=== PATIENT | female | born 1985 | race Caucasian/White ===

== ENCOUNTER 2018-12-19 10:21 | Emergency (ER) | payer OTHER ==
[2018-12-19 10:51] VITALS: BMI 47.8
[2018-12-19 10:56] VITALS: BP 108/63; PULSE 93; RESP 18; TEMP 98.4; O2SAT 96
--- NOTE | 2018-12-19 12:04 | ED PDOC ---
Arrival/HPI - General Chief Complaint: Abnormal Skin Integrity Time Seen by Provider: 12/19/18 11:32 Historian: Patient - History of Present Illness Narrative History of Present Illness (Text): 12/19/18 12:01 33-year-old female presents today with a 2 week history of pain to the lumbosacral area. Patient has been seen by the primary care physician and was given antibiotics she has been taking twice a day for the past few days. Patient states over the past few days she's noticed that there is drainage coming from the sacral region. Patient denies fevers or chills. No abdominal pain. No nausea vomiting diarrhea or constipation. Patient states that she was supposed to see a surgeon today but when she went to the office they told him that they did not take her insurance and she came to the emergency room for evaluation. Patient states the pain is worse with sitting and applying pressure to the area. Patient states she's been doing warm compresses at home. Past Medical History - Provider Review Nursing Documentation Reviewed: Yes - Travel History Have you recently traveled outside [place] w/in the past 3 mons?: No - Reproductive Currently : No Family/Social History - Physician Review Nursing Documentation Reviewed: Yes Family/Social History: Unknown Family HX Smoking Status: Unknown If Ever Smoked Hx Alcohol Use: No Hx Substance Use: No Allergies/Home Meds Allergies/Adverse Reactions: Allergies shellfish derived Allergy (Verified 12/19/18 10:50) RASH Review of Systems - Review of Systems Constitutional: absent: Fatigue, Fevers Respiratory: absent: SOB, Cough Cardiovascular: absent: Chest Pain, Palpitations Gastrointestinal: absent: Abdominal Pain, Nausea, Vomiting Musculoskeletal: Back Pain (at abscess site). absent: Arthralgias, Neck Pain Skin: Abscess Neurological: absent: Headache, Dizziness Psychiatric: absent: Anxiety, Depression Physical Exam Vital Signs Reviewed: Yes Vital Signs Temp Pulse Resp BP Pulse Ox 12/19/18 10:56 98.4 F 93 H 18 108/63 96 Temperature: Afebrile Blood Pressure: Normal Pulse: Regular Respiratory Rate: Normal Appearance: Positive for: Well-Appearing, Non-Toxic, Comfortable Pain Distress: None Mental Status: Positive for: Alert and Oriented X 3 - Systems Exam Head: Present: Atraumatic Respiratory/Chest: Present: Clear to Auscultation Cardiovascular: Present: Regular Rate and Rhythm Back: Present: Other (there is a large tender area of erythema noted at the proximal aspect of the buttock crease with induration extending laterally.no erythema. + moderate drainage noted. ) Neurological: Present: GCS=15, Speech Normal Skin: Present: Warm, Dry, Normal Color Psychiatric: Present: Alert, Oriented x 3 Medical Decision Making ED Course and Treatment: 12/19/18 12:09 pt non toxic well appearing; no distress. stable vitals. Patient was seen and evaluated by the surgical residents at bedside. They have advised blood work and an pelvis CAT scan to further evaluate the abscess. CBC: wbc;12.0 CMP: glucose; 190 percocet given for pain. CAT scan:FINDINGS: BLADDER: Unremarkable. No mass. REPRODUCTIVE ORGANS: There is cystic formation seen to right and posterior uterus measures 4.3 centimeter likely represent right adnexal cyst. VISUALIZED BOWEL: Unremarkable. PERITONEUM: Unremarkable, as visualized. No free fluid. No free air. LYMPH NODES: Unremarkable. No enlarged lymph nodes. BONES: No fracture or focal lesion. VASCULATURE: No aortic atherosclerotic calcification or mural plaque present. OTHER FINDINGS: There is subcutaneous fluid collection surrounding with inflammatory changes at the midline lower back at the level of lower sacrum and upper coccyx spine measures 3.9 centimeter in the longitudinal diameter 3.5 centimeter in the transverse diameter and 2.5 centimeter in the AP diameter may represent abscess formation. IMPRESSION: Subcutaneous fluid collection surrounding with inflammatory changes seen at the midline lower back at the level of the sacral coccyx spine measures 3.9 x 3.5 x 2.5 centimeter may represent abscess formation. Suspicious for right adnexal cyst measures approximately 4 centimeter. If indicated further assessment by ultrasound of the pelvis may be obtained. 12/19/18 15:36 awaiting surgery for further management. pt is requesting albuterol treatment. lungs are clear CTA bilaterally. 12/19/18 16:47 Surgical residents reviewed the CT and saw the patient again at bedside and discussed the plan for which no incision and drainage is indicated at this time since the abscess is currently draining. Case was discussed with Dr. Moore. Patient eloped from the ER without medications. pt states that she is frustrated that she waited in the ER with no treatment of her condition. I was able to locate the patient around the corner from the emergency room. I spoke with the patient and apologized for the long wait in the emergency room. I discussed in depth with her that the surgical residents who spoke with the attending discussed the case and found that there was no indication for incision and drainage at this time because the wound is currently draining and there is a very small collection found on CAT scan. I advised her that they suggested continuing the warm compresses and warm soaks. I've advised the patient that she should take antibiotics and continue the warm compresses and she can follow-up with the surgeon. I've advised immediate return if symptoms worsen persist or if new concerning symptoms develop. I was able to convince the patient to return into the emergency room to at least take the first dose of both Bactrim and Keflex and Percocet for the pain and take rX for the same. PT states she took tramadol at home without improvement in the pain and does not want tramadol. Patient states the Percocet did help significantly with the pain in the emergency room. pt was advised to return immediately if symptoms worsen,persist or if new symptoms develop. advised immediate return if pain worsens, high fevers, or if any other concerning symptoms develop. all aspects of this case were discussed the attending of record. Impression: Abscess, buttock Bactrim 1 tablet twice daily 7 days Keflex one capsule 4 times daily 7 days Increase fluids Motrin every 6 hours as needed for pain. percocet one tablet every 8 hours as needed for moderate to severe pain: May cause drowsiness Follow-up with the surgeon within the next 2 days Continue warm compresses and warm soaks frequently Return immediately if symptoms worsen persist or if new concerning symptoms develop Disposition/Present on Arrival - Present on Arrival Any Indicators Present on Arrival: No History of DVT/PE: No History of Uncontrolled Diabetes: No Urinary Catheter: No History of Decub. Ulcer: No History Surgical Site Infection Following: None - Disposition Have Diagnosis and Disposition been Completed?: Yes Diagnosis: Pilonidal abscess Disposition: HOME/ ROUTINE Disposition Time: 13:20 Patient Plan: Discharge Condition: GOOD Discharge Instructions (ExitCare): Abscess Incision and Drainage (DC) Additional Instructions: Bactrim 1 tablet twice daily 7 days Keflex one capsule 4 times daily 7 days Increase fluids Motrin every 6 hours as needed for pain. Tramadol one tablet every 8 hours as needed for moderate to severe pain: May cause drowsiness Follow-up with the surgeon within the next 2 days Continue warm compresses and warm soaks frequently Return immediately if symptoms worsen persist or if new concerning symptoms develop Prescriptions: Cephalexin [Keflex] 500 mg PO QID #28 capsule Ibuprofen [Motrin] 600 mg PO Q6H PRN #20 tab PRN Reason: pain/fever reduction oxyCODONE/Acetaminophen [Percocet 5/325 mg Tab] 1 tab PO Q6H PRN #10 tab PRN Reason: moderate to severe pain Sulfamethoxazole/Trimethoprim [Bactrim DS 800 mg-160 mg] 1 tab PO BID #14 tab RX: traMADol [Ultram] 50 mg PO Q6H PRN #6 tab PRN Reason: moderate to severe pain Referrals: Nils Moore MD [Staff Provider] - Follow up with primary Emily Odell MD [Medical Doctor] - Follow up with primary [facility] [Outside] - Follow up with primary Forms: [employer] (Mongolian), WORK NOTE
[2018-12-19] MEDS ORDERED: Oxycodone/Acetaminophen 5/325 mg Tab PO STA ×2 (12:10→16:40)
[2018-12-19 12:58] LABS: BASO # 0.03 K/mm3 (0.0-2.0); BASO % 0.3 % (0.0-3.0); EOS # 0.1 (0.0-0.7); HEMOGLOBIN 13.5 g/dL (12.0-16.0); LYMPH # 2.8 (1.2-3.4); LYMPH % 23.1 % (22.0-35.0); MEAN CELL VOLUME 91.1 fl (80.0-105.0); MEAN CORPUSCULAR HEMOGLOBIN 29.9 pg (25.0-35.0); MEAN CORPUSCULAR HGB CONC 32.8 g/dl (31.0-37.0); MEAN PLATELET VOLUME 9.9 fl (7.0-11.0); MONO # 0.6 (0.1-0.6); MONO % 4.7 % (1.0-6.0); RBC 4.51 10^6/uL (3.5-6.1); RED CELL DISTRIBUTION WIDTH 12.5 % (11.5-14.5)
[2018-12-19 13:06] LABS: ALB/GLOB RATIO 1.2 (1.1-1.8); ALBUMIN 4.2 g/dL (3.0-4.8); AST/SGOT 17 U/L (14-36); BLOOD UREA NITROGEN 8 mg/dL (7-21); CALCIUM 9.4 mg/dL (8.4-10.5); GFR NON-AFRICAN AMERICAN > 60
[2018-12-19 13:11] LABS: ALT/SGPT < 6 U/L (7-56)
--- NOTE | 2018-12-19 13:30 | CP.PCM.CON ---
History of Present Illness - History of Present Illness History of Present Illness: Surgery consult for Dr. Moore Patient is a 33F with PMH of hypercholesterolemia, DM, Asthma, and depression who presented to the ED for a painful draining lesion located at just superior to the cleft. Began 2 weeks ago as a small bump. Pt was seen 1 week ago by a physician who thought it was a pimple. Pain got worse in the following week. Patient scheduled another appointment with PMD who prescribed oral bactrim and referal for surgery center in Nursery. Now that wound is draining spontaneously, pain is improving but not completely gone. Pt was going to see a surgeon today but learned her insurance was not accepted, so she came to the ED. Pt denies fever, chills, chest pain, shortness of breath, vomiting, dysuria. PMH: hypercholesterolemia, DM, Asthma, and depression PSH: x2, tubual ligation FH: DM, HTN, Bipolar disorder, COPD SH: >10 PYH smoking, Social EtOH, Denies recreational drugs ALL: Shellfish Medications: Fish oil, Bactrim, Mupirocin Code: Full code Surgery was consulted for pylonidal cyst. Review of Systems - Review of Systems Review of Systems: 12 Point ROS as per HPI Past Patient History - Past Social History Smoking Status: Unknown If Ever Smoked - PSYCHIATRIC Hx Substance Use: No Meds Home Medications: Home Medication List Medication Instructions Recorded Confirmed Type Cephalexin [Keflex] 500 mg PO QID #28 capsule 12/19/18 Rx Ibuprofen [Motrin] 600 mg PO Q6H PRN #20 tab 12/19/18 Rx Sulfamethoxazole/Trimethoprim 1 tab PO BID #14 tab 12/19/18 Rx [Bactrim DS 800 mg-160 mg] traMADol [Ultram] 50 mg PO Q6H PRN #6 tab 12/19/18 Rx Allergies/Adverse Reactions: Allergies Allergy/AdvReac Type Severity Reaction Status Date / Time shellfish derived Allergy RASH Verified 12/19/18 10:50 Physical Exam - Constitutional Appears: Non-toxic, No Acute Distress - Head Exam Head Exam: ATRAUMATIC, NORMAL INSPECTION, NORMOCEPHALIC - Eye Exam Eye Exam: EOMI, Normal appearance, PERRL - ENT Exam ENT Exam: Mucous Membranes Moist - Neck Exam Neck exam: Positive for: Normal Inspection - Respiratory Exam Respiratory Exam: Wheezes, NORMAL BREATHING PATTERN. absent: Rales, Rhonchi - Cardiovascular Exam Cardiovascular Exam: REGULAR RHYTHM, +S1, +S2 - GI/Abdominal Exam GI & Abdominal Exam: Normal Bowel Sounds, Soft, Tenderness. absent: Diminished Bowel Sounds, Distended, Firm, Guarding - Extremities Exam Extremities exam: Positive for: normal inspection. Negative for: calf tenderness, pedal edema - Neurological Exam Neurological exam: Alert, Oriented x3 - Psychiatric Exam Psychiatric exam: Normal Affect, Normal Mood - Skin Skin Exam: Dry, Intact, Normal Color Additional comments: Draining pilonidal cyst in sacrum above the anus extending subcutaneously into the surroundng tissue with a roughly 3cm diameter. Results - Vital Signs Recent Vital Signs: Last Vital Signs Temp 98.4 F 12/19/18 10:56 Pulse 93 H 12/19/18 10:56 Resp 18 12/19/18 10:56 BP 108/63 12/19/18 10:56 Pulse Ox 96 12/19/18 10:56 - Labs Result Diagrams: 12/19/18 12:35 12/19/18 12:35 Labs: Laboratory Results - last 24 hr 12/19/18 12/19/18 12:35 12:35 WBC 12.0 H RBC 4.51 Hgb 13.5 Hct 41.1 MCV 91.1 MCH 29.9 MCHC 32.8 RDW 12.5 Plt Count 277 MPV 9.9 Neut % (Auto) 70.9 H Lymph % (Auto) 23.1 Izard % (Auto) 4.7 Eos % (Auto) 1.0 L Baso % (Auto) 0.3 Lymph # (Auto) 2.8 Izard # (Auto) 0.6 Eos # (Auto) 0.1 Baso # (Auto) 0.03 Absolute Neuts (auto) 8.50 H Sodium 137 Potassium 4.2 Chloride 104 Carbon Dioxide 27 Anion Gap 11 BUN 8 Creatinine 0.6 L Est GFR ( Amer) > 60 Est GFR (Non-Af Amer) > 60 Random Glucose 190 H Calcium 9.4 Total Bilirubin 0.7 AST 17 ALT < 6 L Alkaline Phosphatase 79 Total Protein 7.7 Albumin 4.2 Globulin 3.6 Albumin/Globulin Ratio 1.2 Assessment & Plan - Assessment and Plan (Free Text) Assessment: This is a 33F with PMH of hypercholesterolemia, DM, asthma, and depression presenting to the ED with a painful draining pilonidal cyst at the superior edge of the fold. Plan: Pelvic CT without contrast demonstrates subcutaneous fluid collection at the le suni of the sacral coccyx spine measuring 3.9 x 3.5 x 2.5 cm that may represent abscess formation -No need for I&D, continue oral antibiotics, followup outpatient pmd -Beck x 1 PGY-1 Luz Newton
--- NOTE | 2018-12-19 13:33 | CT ---
Date of service: 12/19/2018 PROCEDURE: CT Pelvis without contrast HISTORY: pain/ abscess to sacral region. COMPARISON: None available. TECHNIQUE: Contiguous axial images of the pelvis . No intravenous or oral contrast given. Coronal and sagittal reformats generated. Radiation dose: Total exam DLP = 1721.16 mGy-cm. This CT exam was performed using one or more of the following dose reduction techniques: Automated exposure control, adjustment of the mA and/or kV according to patient size, and/or use of iterative reconstruction technique. FINDINGS: BLADDER: Unremarkable. No mass. REPRODUCTIVE ORGANS: There is cystic formation seen to right and posterior uterus measures 4.3 centimeter likely represent right adnexal cyst. VISUALIZED BOWEL: Unremarkable. PERITONEUM: Unremarkable, as visualized. No free fluid. No free air. LYMPH NODES: Unremarkable. No enlarged lymph nodes. BONES: No fracture or focal lesion. VASCULATURE: No aortic atherosclerotic calcification or mural plaque present. OTHER FINDINGS: There is subcutaneous fluid collection surrounding with inflammatory changes at the midline lower back at the level of lower sacrum and upper coccyx spine measures 3.9 centimeter in the longitudinal diameter 3.5 centimeter in the transverse diameter and 2.5 centimeter in the AP diameter may represent abscess formation. IMPRESSION: Subcutaneous fluid collection surrounding with inflammatory changes seen at the midline lower back at the level of the sacral coccyx spine measures 3.9 x 3.5 x 2.5 centimeter may represent abscess formation. Suspicious for right adnexal cyst measures approximately 4 centimeter. If indicated further assessment by ultrasound of the pelvis may be obtained.
[2018-12-19] MEDS ORDERED: Albuterol-Ipratrop 3 mg / 0.5 (3 ml) UD IH STA (13:41)
[2018-12-19] MEDS ORDERED: Albuterol 0.083% Inhal Sol (2.5 mg/3 mL) UD IH STA (15:32)
[2018-12-19] MEDS ORDERED: Albuterol-Ipratrop 3 mg / 0.5 (3 ml) UD ONE (15:36)
[2018-12-19] MEDS ORDERED: Tmp-Smz 800 mg-160 mg DS Tab PO STA (16:28)
[2018-12-19] MEDS ORDERED: Oxycodone/Acetaminophen 5/325 mg Tab ONE (16:49)
== END 2018-12-19 18:31 | disposition home or self-care (01) ==
LOC: ED 10:21
DX: L05.01 Pilonidal cyst with abscess (principal); E78.00 Pure hypercholesterolemia, unspecified; E11.9 Type 2 diabetes mellitus without complications; F32.9 Major depressive disorder, single episode, unspecified